=== PATIENT | male | born 1990 | race African-American/Black ===

== ENCOUNTER 2023-10-28 20:14 | Emergency (ER) | payer OTHER | END 2023-10-28 21:48 | LOC: NAV ERS 20:14 → EEVIPCON 20:14 → NAV ERS 21:48 | DX: G44.009 Cluster headache syndrome, unspecified, not intractable (principal); I10 Essential (primary) hypertension; Z79.899 Other long term (current) drug therapy | CPT/HCPCS: 70450 ==